=== PATIENT | female | born 1990 | race Caucasian/White ===

== ENCOUNTER 2017-12-04 04:30 | Inpatient (IN) | payer OTHER ==
[2017-12-04 05:09] VITALS: BMI 33.3
[2017-12-04 05:20] LABS: BASO % 0.3 % (0-2.0); EOS % 0.7 % (0-4.5); HEMATOCRIT 39.1 % (32.4-45.2); HEMOGLOBIN 13.2 GM/dL (10.7-15.3); LYMPH % 12.1 % (8-40); MCH 32.8 pg (25.7-33.7); MCHC 33.8 g/dl (32.0-36.0); MEAN CELL VOLUME 97.1 fl (80-96); MEAN PLT VOLUME 9.9 fl (7.5-11.1); NEUT % 78.9 % (42.8-82.8); PLATELET COUNT 224 K/MM3 (134-434); RBC 4.02 M/mm3 (3.60-5.2); RDW 13.7 % (11.6-15.6); WHITE BLOOD COUNT 12.3 K/mm3 (4.0-10.0)
[2017-12-04] MEDS ORDERED: DEXTROSE 5%-LACTATED RINGERS 1,000 ML IV ONE (05:22)
[2017-12-04 05:50] LABS: INR 0.92 (0.82-1.09); PROTHROMBIN TIME (PATIENT) 10.4 SEC (9.98-11.88)
[2017-12-04 05:57] LABS: ANION GAP 9 (8-16); BLOOD UREA NITROGEN 9 mg/dL (7-18); CALCIUM 8.2 mg/dL (8.5-10.1); CHLORIDE 109 mmol/L (98-107); CO2 20 mmol/L (21-32); CREATININE 0.6 mg/dL (0.55-1.02); GLUCOSE,RANDOM 85 mg/dL (74-106); POTASSIUM 4.2 mmol/L (3.5-5.1); SODIUM 138 mmol/L (136-145)
[2017-12-04] MEDS ORDERED: OXYTOCIN 20 UNITS in 0.9% NS 20 UNIT/1,000 ML INFUS.BAG IV ONE (06:20)
--- NOTE | 2017-12-04 06:36 | HP ---
Past Medical History - Primary Care Physician PCP:: Dany Lowry - Admission Chief Complaint: 39 weeks, labor History of Present Illness: 27 yo f g 2 p1001 edc by sono 12/05/17 in labor, cx 7 cm 80 vx -1 mi, fhr cat 1 , contraction regular q 2 min History Source: Patient Limitations to Obtaining History: Language Barrier - Past Medical History ...: 2 ...Para: 1 ...Term: 1 ...: 0 ...Spon : 0 ...Induced : 0 ...Multiple Gestation: 0 ...LMP: 02/28/17 ... Weeks Gestation by Dates: 39.6 ...EDC by Dates: 12/05/17 ...EDC by Sono: 12/05/17 - Past Surgical History Hx Myomectomy: No Hx Transabdominal Cerclage: No - Smoking History Smoking history: Never smoked Have you smoked in the past 12 months: No - Alcohol/Substance Use Hx Alcohol Use: No - Social History Usual Living Arrangement: Yes: With Spouse History of Recent Travel: No Home Medications - Allergies Allergies/Adverse Reactions: Allergies Allergy/AdvReac Type Severity Reaction Status Date / Time No Known Allergies Allergy Verified 12/04/17 04:56 - Home Medications Home Medications: Ambulatory Orders Vitamins (Sjr) - 1 tab PO DAILY 12/04/17 Review of Systems - Review of Systems Constitutional: reports: No Symptoms Eyes: reports: No Symptoms HENT: reports: No Symptoms Neck: reports: No Symptoms Cardiovascular: reports: No Symptoms Respiratory: reports: No Symptoms Gastrointestinal: reports: No Symptoms Genitourinary: reports: No Symptoms Breasts: reports: No Symptoms Reported Musculoskeletal: reports: No Symptoms Integumentary: reports: No Symptoms Endocrine: reports: No Symptoms Hematology/Lymphatic: reports: No Symptoms Psychiatric: reports: No Symptoms Physical Exam - Maternity Vital Signs: Vital Signs Temperature 97.8 F 12/04/17 06:00 Pulse Rate 88 12/04/17 06:00 Respiratory Rate 18 12/04/17 06:00 Blood Pressure 132/66 12/04/17 06:00 O2 Sat by Pulse Oximetry (%) Constitutional: Yes: Well Nourished, No Distress, Calm Eyes: Yes: WNL, Conjunctiva Clear, EOM Intact HENT: Yes: WNL, Atraumatic, Normocephalic Neck: Yes: WNL, Supple, Trachea Midline Cardiovascular: Yes: WNL, Regular Rate and Rhythm Breast(s): Yes: WNL - Abdominal Exam/OB Fundal Height: 38 Number of Fetuses: Single Presentation: Vertex Contractions: Yes Regularity: Regular Intensity: Mod/Strong Monitor Mode: External Heart Rate Location: [facility] Category: I Accelerations: Uniform Decelerations: None - Vaginal Exam/OB Vaginal Bleediing: Bloody Show Speculum Exam: No Dilatation (cm): 7 cm Effacement (%): 80 Amniotic Membrane Status: Bulging Presentation: Vertex/Position Station: -1 - Physical Exam Musculoskeletal: Yes: WNL Edema: LLE: Trace, RLE: Trace Deep Tendon Reflex Grade: Normal +2 Psychiatric: Yes: WNL - Labs Lab Results: CBC, BMP 12/04/17 04:30 12/04/17 04:30 Hemorrhage Risk Assessment - Risk Factors Medium Risk Factors: Yes: None High Risk Factors: Yes: None Risk Score: 1 Risk Level: Medium Risk Problem List - Problems (1) with 39 completed weeks gestation Code(s): Z3A.39 - 39 WEEKS GESTATION OF (2) Labor established Code(s): WOH7558 - Assessment/Plan admit, fhm, pain management
[2017-12-04] MEDS ORDERED: BENZOCAINE 28 GM HEMORRHOIDAL OINTMENT TP PRN (06:38)
[2017-12-04] MEDS ORDERED: BENZOCAINE 20% 57 GM BOTTLE TP PRN (06:38)
[2017-12-04] MEDS ORDERED: BISACODYL 10 MG SUPP.RECT RC PRN (06:38)
[2017-12-04] MEDS ORDERED: WITCH HAZEL 50% (TUCKS) 40 PAD/JAR PAD TP PRN (06:38)
[2017-12-04] MEDS ORDERED: METHYLERGONOVINE MALEATE 0.2 MG/1 ML AMP IM PRN (06:38)
[2017-12-04] MEDS ORDERED: D5W-LR W/ 20 UNITS OXYTOCIN 20 UNIT/1,000 ML INFUS.BAG IV SCH (06:45)
[2017-12-04] MEDS: IBUPROFEN 600 MG TABLET (FP) PO PRN ×2 (08:48→12:52)
[2017-12-04] MEDS: FERROUS SO4 325 MG TABLET (FP) PO SCH ×2 (08:48→18:05)
[2017-12-04] MEDS: PRENATAL VITAMINS W/ FOLIC ACID TABLET (FP) PO SCH ×2 (08:49→10:00)
[2017-12-04] MEDS: ACETAMINOPHEN 325 MG TABLET (FP) PO PRN ×2 (12:51→18:06)
[2017-12-05] MEDS: IBUPROFEN 600 MG TABLET (FP) PO PRN ×3 (01:51→20:53)
[2017-12-05] MEDS: ACETAMINOPHEN 325 MG TABLET (FP) PO PRN ×3 (01:52→20:52)
--- NOTE | 2017-12-05 06:47 | PN ---
Post Progress Note - Subjective Subjective: 27 yo Para 2 status post vaginal delivery, seen and evaluated. Doing well. Post Day: 1 Type of Delivery: Vital Signs: Vital Signs Temperature 98.5 F 12/05/17 06:07 Pulse Rate 86 12/05/17 06:07 Respiratory Rate 20 12/05/17 06:07 Blood Pressure 123/76 12/05/17 06:07 O2 Sat by Pulse Oximetry (%) Breast Exam: Yes: Soft Uterus: Yes: Fundus Firm Abdomen/GI: Yes: Abdomen soft, Tolerating PO Lochia: Yes: Rubra Lochia, amount: Moderate Extremities: Yes: Calves non-tender Activity: Ambulating - Labs Labs: CBC WBC 12.3 K/mm3 (4.0-10.0) H 12/04/17 04:30 RBC 4.02 M/mm3 (3.60-5.2) 12/04/17 04:30 Hgb 13.2 GM/dL (10.7-15.3) 12/04/17 04:30 Hct 39.1 % (32.4-45.2) 12/04/17 04:30 MCV 97.1 fl (80-96) H 12/04/17 04:30 MCH 32.8 pg (25.7-33.7) 12/04/17 04:30 MCHC 33.8 g/dl (32.0-36.0) 12/04/17 04:30 RDW 13.7 % (11.6-15.6) 12/04/17 04:30 Plt Count 224 K/MM3 (134-434) 12/04/17 04:30 MPV 9.9 fl (7.5-11.1) 12/04/17 04:30 Neutrophils % 78.9 % (42.8-82.8) 12/04/17 04:30 Lymphocytes % 12.1 % (8-40) 12/04/17 04:30 Monocytes % 8.0 % (3.8-10.2) 12/04/17 04:30 Eosinophils % 0.7 % (0-4.5) 12/04/17 04:30 Basophils % 0.3 % (0-2.0) 12/04/17 04:30 Problem List - Problems (1) Status post normal vaginal delivery Code(s): AWT7758 - Assessment/Plan Status post vaginal delivery Stable Continue care
[2017-12-05] MEDS: FERROUS SO4 325 MG TABLET (FP) PO SCH ×2 (07:49→17:07)
[2017-12-05 07:51] LABS: BASO % 0.3 % (0-2.0); EOS % 1.5 % (0-4.5); HEMATOCRIT 35.9 % (32.4-45.2); HEMOGLOBIN 12.2 GM/dL (10.7-15.3); LYMPH % 16.2 % (8-40); MCH 32.9 pg (25.7-33.7); MCHC 33.9 g/dl (32.0-36.0); MEAN CELL VOLUME 97.3 fl (80-96); MEAN PLT VOLUME 9.3 fl (7.5-11.1); MONO % 9.4 % (3.8-10.2); NEUT % 72.6 % (42.8-82.8); PLATELET COUNT 195 K/MM3 (134-434); RBC 3.69 M/mm3 (3.60-5.2); RDW 14.2 % (11.6-15.6); WHITE BLOOD COUNT 10.4 K/mm3 (4.0-10.0)
[2017-12-05] MEDS: PRENATAL VITAMINS W/ FOLIC ACID TABLET (FP) PO SCH (09:33)
[2017-12-05] MEDS ORDERED: FLU VACCINE QUAD 60 MCG/0.5 ML (MDV 17-18) IM ONE (10:00)
[2017-12-05] MEDS ORDERED: DIPHTH,PERTUSS(ACELL),TET 0.5 ML DISP.SYRIN IM ONE (10:00)
[2017-12-05] MEDS ORDERED: SENNOSIDES/DOCUSATE COMBO (SENNA PLUS) TABLET (UD) PO PRN (22:00)
[2017-12-06] MEDS: IBUPROFEN 600 MG TABLET (FP) PO PRN (08:20)
[2017-12-06] MEDS: FERROUS SO4 325 MG TABLET (FP) PO SCH (08:20)
[2017-12-06] MEDS: ACETAMINOPHEN 325 MG TABLET (FP) PO PRN (08:21)
[2017-12-06] MEDS: PRENATAL VITAMINS W/ FOLIC ACID TABLET (FP) PO SCH (10:09)
[2017-12-06 10:18] VITALS: BP 121/75; PULSE 88; TEMP 98.2
--- NOTE | 2017-12-06 10:26 | DS ---
Physical Exam-[employer] Vital Signs: Vital Signs Temperature 98.2 F 12/06/17 10:16 Pulse Rate 88 12/06/17 10:16 Respiratory Rate 20 12/06/17 10:16 Blood Pressure 121/75 12/06/17 10:16 O2 Sat by Pulse Oximetry (%) Constitutional: Yes: Well Nourished Eyes: Yes: Conjunctiva Clear HENT: Yes: Atraumatic Neck: Yes: Supple Cardiovascular: Yes: Regular Rate and Rhythm Respiratory: Yes: Regular Gastrointestinal: Yes: Normal Bowel Sounds External Genitalia: Yes: Normal Vaginal Exam: Yes: Normal Cervix: Yes: Normal Uterus: Yes: Firm ....Post : Yes: Uterus firm, Moderate lochia serosa Neurological: Yes: Alert, Oriented ...Motor Strength: WNL Psychiatric: Yes: Alert, Oriented Labs: CBC, BMP 12/05/17 07:17 12/04/17 04:30 Delivery - Delivery Type of Anesthesia: None Episiotomy/Laceration: None EBL (cc): 300 Delivery, Single - Stages of Labor Date 1st Stage Initiatied: 12/03/17 Time 1st Stage Initiated: 22:00 Date 2nd Stage Initiated: 12/04/17 Time 2nd Stage Initiated: 06:00 Date of Delivery: 12/04/17 Time of Delivery: 06:07 Time Placenta Delivered: 06:10 - Condition of Infant 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 Infant Gender: Female Weight: 8 lb 2 oz Position: Left, OA Total Hours ROM (Hrs/Mins): 10MIN - 1 Minute Total Score: 9 5 Minutes Total Score: 9 - Feeding Plan Initial Plan: Elected not to breastfeed exclusively throughout hospitalization Discharge Summary Reason For Visit: LABOR ADMIT Current Active Problems Labor established (Acute) with 39 completed weeks gestation (Acute) Status post normal vaginal delivery (Acute) Procedures: Principal: Normal spontaneous vaginal delivery Hospital Course: Routine care Condition: Good - Instructions Diet, Activity, Other Instructions: Regular diet No douching, no sexual intercourse x 6 weeks. F/U in clinic in 6 weeks Disposition: HOME - Home Medications Comprehensive Discharge Medication List: Ambulatory Orders Vitamins (Sjr) - 1 tab PO DAILY 12/04/17
== END 2017-12-06 11:40 | disposition home or self-care (01) | DRG 560 ==
LOC: MERGE 04:30 → JLDR 04:30 → J3W 07:45
PROVIDERS: ADMIT Obstetrics & Gynecology; ATTEND Obstetrics & Gynecology
PROC: 10E0XZZ Delivery of Products of Conception, External Approach (ICD-10-PCS; principal; 2017-12-04)
DX: O80 Encounter for full-term uncomplicated delivery (principal); Z3A.39 39 weeks gestation of pregnancy; Z37.0 Single live birth
CPT/HCPCS: 36415; 59409; 80048; 85025; 85610; 85730; 86593; 86850; 86900; 86901; 90688; 90715

== ENCOUNTER 2023-03-18 15:29 | Emergency (ER) | payer OTHER ==
[2023-03-18 15:47] VITALS: RESP 16; TEMP 98.1; BMI 30.7
[2023-03-18] MEDS ORDERED: KETOROLAC TROMETHAMINE 30 MG/1 ML VIAL IVPUSH ONE (17:12)
[2023-03-18] MEDS ORDERED: SODIUM CHLORIDE 1,000 ML IV STA ×2 (17:12→18:04)
[2023-03-18] MEDS ORDERED: METOCLOPRAMIDE HCL INJECTION 10 MG/2 ML VIAL IVPUSH ONE (17:13)
[2023-03-18] MEDS ORDERED: METOCLOPRAMIDE HCL INJECTION 10 MG/2 ML VIAL ONE (17:16)
[2023-03-18] MEDS ORDERED: KETOROLAC TROMETHAMINE 30 MG/1 ML VIAL ONE (17:17)
[2023-03-18 17:40] LABS: BASO % 0.2 % (0-2.0); EOS % 0.6 % (0-4.5); HEMOGLOBIN 13.2 GM/dL (10.7-15.3); LYMPH % 11.6 % (8-40); MCH 30.4 pg (25.7-33.7); MEAN CELL VOLUME 89.6 fl (80-96); MEAN PLT VOLUME 7.6 fl (7.5-11.1); MONO % 5.2 % (3.8-10.2); NEUT % 82.4 % (42.8-82.8); PLATELET COUNT 329 10^3/uL (134-434); RBC 4.35 M/mm3 (3.60-5.2); RDW 13.5 % (11.6-15.6); WHITE BLOOD COUNT 12.4 K/mm3 (4.0-10.0)
[2023-03-18 17:42] LABS: EPI CELLS 34 /uL (0-25.1); HYALINE CASTS 0 /uL (0-3.1); PH,URINE 5.5 (5.0-8.0); URINE APPEARANCE CLEAR; URINE BACTERIA 468 /uL (0-1359); URINE BILIRUBIN NEGATIVE (NEGATIVE); URINE COLOR YELLOW; URINE GLUCOSE (UA) NEGATIVE (NEGATIVE); URINE KETONE NEGATIVE (NEGATIVE); URINE LEUK ESTERASE NEGATIVE (NEGATIVE); URINE NITRITE NEGATIVE (NEGATIVE); URINE PROTEIN NEGATIVE (NEGATIVE); URINE RBC 2 /uL (0-23.9); URINE UROBILINOGEN 0.2 mg/dL (0.2-1.0); URINE WBC 4 /uL (0-25.8)
[2023-03-18 17:49] LABS: POTASSIUM 3.9 mmol/L (3.5-5.1)
[2023-03-18 17:51] LABS: BLOOD UREA NITROGEN 9.6 mg/dL (7-18); CALCIUM 9.6 mg/dL (8.5-10.1)
[2023-03-18 17:54] LABS: CREATININE 0.6 mg/dL (0.55-1.3)
[2023-03-18] MEDS ORDERED: MECLIZINE HCL 25 MG TABLET (FP) PO ONE (18:04)
[2023-03-18] MEDS ORDERED: MECLIZINE HCL 25 MG TABLET (FP) ONE (18:07)
[2023-03-18 19:20] VITALS: BP 119/69; PULSE 67
== END 2023-03-18 19:26 | disposition home or self-care (01) ==
LOC: JER 15:29
PROC: 3E033GC Introduction of Other Therapeutic Substance into Peripheral Vein, Percutaneous Approach (ICD-10-PCS; principal; 2023-03-18)
PROC: 3E0333Z Introduction of Anti-inflammatory into Peripheral Vein, Percutaneous Approach (ICD-10-PCS; 2023-03-18)
PROC: 3E033GC Introduction of Other Therapeutic Substance into Peripheral Vein, Percutaneous Approach (ICD-10-PCS; 2023-03-18)
PROC: 3E0337Z Introduction of Electrolytic and Water Balance Substance into Peripheral Vein, Percutaneous Approach (ICD-10-PCS; 2023-03-18)
DX: G44.89 Other headache syndrome (principal); R42 Dizziness and giddiness; H53.71 Glare sensitivity; Z20.822 Contact with and (suspected) exposure to COVID-19
CPT/HCPCS: 0241U-QW; 36415; 80048; 81003; 84703; 85025; 87086; 99284-25

== ENCOUNTER 2024-03-30 06:20 | Inpatient (IN) | payer OTHER ==
[2024-03-30] MEDS: ELECTROLYTE-148 SOLN 1,000 ML IV SCH (07:00)
[2024-03-30] MEDS ORDERED: ELECTROLYTE-148 SOLN 1,000 ML IV SCH (07:30)
[2024-03-30 08:58] VITALS: BMI 33.5
[2024-03-30 09:22] LABS: BASO % 0.2 % (0-2.0); EOS % 0.3 % (0-4.5); HEMATOCRIT 38.8 % (32.4-45.2); HEMOGLOBIN 13.1 GM/dL (10.7-15.3); LYMPH % 6.7 % (8-40); MCHC 33.7 g/dl (32.0-36.0); MEAN CELL VOLUME 94.9 fl (80-96); MEAN PLT VOLUME 9.6 fl (7.5-11.1); MONO % 8.7 % (3.8-10.2); NEUT % 84.1 % (42.8-82.8); PLATELET COUNT 181 10^3/uL (134-434); RBC 4.09 M/mm3 (3.60-5.2); RDW 14.7 % (11.6-15.6); WHITE BLOOD COUNT 15.3 K/mm3 (4.0-10.0)
[2024-03-30 09:35] LABS: INR 0.88 (0.83-1.09)
[2024-03-30 09:38] LABS: ACTIVATED PTT 26.5 SECONDS (25.2-36.5)
[2024-03-30 09:41] LABS: CALCIUM 8.8 mg/dL (8.5-10.1); POTASSIUM 3.8 mmol/L (3.5-5.1)
[2024-03-30 09:42] LABS: BLOOD UREA NITROGEN 10.6 mg/dL (7-18)
[2024-03-30 09:45] LABS: CREATININE 0.5 mg/dL (0.55-1.3)
[2024-03-30] MEDS: DEXTROSE 5%-LACTATED RINGERS 1,000 ML IV SCH (14:15)
[2024-03-30] MEDS ORDERED: AMPICILLIN SODIUM 2 GM VIAL ONE (16:59)
[2024-03-30] MEDS: AMPICILLIN - 2 GM in SODIUM CHLORIDE 100 ML IVPB SCH (17:00)
[2024-03-30] MEDS ORDERED: OXYTOCIN 30 UNITS in 0.9% NS 30 UNIT/500 ML INFUS.BAG IVPB ONE (18:54)
[2024-03-30] MEDS: OXYTOCIN 30 UNITS in 0.9% NS 30 UNIT/500 ML INFUS.BAG IVPB SCH (19:00)
[2024-03-30] MEDS ORDERED: FENTANYL/BUPIVACAINE/NS/PF - PCEA - 50 ML DISP.SYRIN EP ONE (20:03)
[2024-03-30] MEDS ORDERED: LIDOCAINE HCL 1% PRESERVATIVE FREE - 30ML VIAL ONE (20:17)
[2024-03-30] MEDS ORDERED: OXYTOCIN 20 UNITS in 0.9% NS 20 UNIT/1,000 ML INFUS.BAG IV ONE (20:17)
[2024-03-30] MEDS: OXYTOCIN 20 UNITS in 0.9% NS 20 UNIT/1,000 ML INFUS.BAG IV SCH (20:25)
[2024-03-30] MEDS ORDERED: WITCH HAZEL 50% (TUCKS) 40 PAD/JAR PAD TP PRN (20:30)
[2024-03-30] MEDS ORDERED: BENZOCAINE 28 GM HEMORRHOIDAL OINTMENT TP PRN (20:30)
[2024-03-30] MEDS ORDERED: METHYLERGONOVINE MALEATE 0.2 MG/1 ML AMP IM PRN (20:30)
[2024-03-30] MEDS ORDERED: ACETAMINOPHEN 325 MG TABLET (FP) PO PRN (20:30)
[2024-03-30] MEDS ORDERED: BISACODYL 10 MG SUPP.RECT RC PRN (20:30)
[2024-03-30] MEDS ORDERED: BENZOCAINE 20% 57 GM BOTTLE TP PRN (20:30)
[2024-03-30] MEDS ORDERED: IBUPROFEN 600 MG TABLET (FP) PO ONE (20:54)
[2024-03-30] MEDS: IBUPROFEN 600 MG TABLET (FP) PO PRN (20:55)
[2024-03-31] MEDS: FERROUS SO4 325 MG TABLET (FP) PO SCH (09:06)
[2024-03-31] MEDS: PRENATAL VITAMINS W/ FOLIC ACID TABLET (FP) PO SCH (09:06)
[2024-03-31 09:38] LABS: HEMATOCRIT 35.4 % (32.4-45.2); HEMOGLOBIN 12.3 GM/dL (10.7-15.3); MCH 32.9 pg (25.7-33.7); MCHC 34.6 g/dl (32.0-36.0); MEAN CELL VOLUME 95.1 fl (80-96); MEAN PLT VOLUME 9.9 fl (7.5-11.1); PLATELET COUNT 159 10^3/uL (134-434); RBC 3.72 M/mm3 (3.60-5.2); RDW 14.5 % (11.6-15.6); WHITE BLOOD COUNT 20.3 K/mm3 (4.0-10.0)
[2024-03-31 10:11] LABS: ANISOCYTOSIS 0; MACROCYTOSIS 0
[2024-03-31] MEDS ORDERED: SENNOSIDES/DOCUSATE COMBO (SENNA PLUS) TABLET (UD) PO PRN (22:00)
[2024-04-01 08:51] LABS: BASO % 0.2 % (0-2.0); EOS % 0.9 % (0-4.5); HEMATOCRIT 36.2 % (32.4-45.2); HEMOGLOBIN 12.2 GM/dL (10.7-15.3); LYMPH % 9.7 % (8-40); MCH 32.3 pg (25.7-33.7); MCHC 33.8 g/dl (32.0-36.0); MEAN CELL VOLUME 95.6 fl (80-96); MEAN PLT VOLUME 9.4 fl (7.5-11.1); MONO % 5.7 % (3.8-10.2); NEUT % 83.5 % (42.8-82.8); PLATELET COUNT 193 10^3/uL (134-434); RBC 3.79 M/mm3 (3.60-5.2); RDW 15.2 % (11.6-15.6); WHITE BLOOD COUNT 19.4 K/mm3 (4.0-10.0)
[2024-04-01 10:22] VITALS: BP 110/67; PULSE 73; RESP 17; TEMP 98.3
== END 2024-04-01 12:15 | disposition home or self-care (01) | DRG 560 ==
LOC: JDEL 06:20 → JLDR 06:50 → J3W 22:49
PROVIDERS: ADMIT Obstetrics & Gynecology Obstetrics; ATTEND Obstetrics & Gynecology Obstetrics
PROC: 10E0XZZ Delivery of Products of Conception, External Approach (ICD-10-PCS; principal; 2024-03-30)
PROC: 0HQ9XZZ Repair Perineum Skin, External Approach (ICD-10-PCS; 2024-03-30)
PROC: 0W8NXZZ Division of Female Perineum, External Approach (ICD-10-PCS; 2024-03-30)
DX: O24.420 Gestational diabetes mellitus in childbirth, diet controlled (principal); O70.0 First degree perineal laceration during delivery; Z3A.40 40 weeks gestation of pregnancy; Z37.0 Single live birth
CPT/HCPCS: 36415; 59409; 80048; 82962; 85025; 85610; 85730; 86780; 86850; 86900; 86901